=== PATIENT | male | born 1950 | race Caucasian/White ===

== ENCOUNTER 2022-04-29 08:56 | Observation (INO) ==
[2022-04-29 09:16] VITALS: BMI 43.5
--- NOTE | 2022-04-29 09:25 | DR.GENAD ---
HPI Time Seen Time Seen by Provider: 04/29/22 09:21 PCP Primary Care Physician: Morgan Complaint/Symptoms Chief Complaint Doctors Comments: BLOOD FROM RECTUM SINCE YESTERDAY. DARK STOOL STARTING LAST PM. HAD COLONOSCOPY 2 WEEKS AGO AND JUST RESTARTED PLAVIX. Chief Complaint:: Patient states he started having blood from rectum yesterday with an extremely loose black stool last PM. He states he had a colonoscopy on 04/14/22 and just restarted plavix COVID-19 Coronavirus risk:travel/contact w/high risk person: No Has patient experienced Coronavirus symptoms: No Source History Provided: Patient Mode of Arrival Mode of Arrival: Ambulatory Timing Onset of Chief Complaint: 04/28/22 PMH PMH Past Medical History: Yes Past Medical History: Arthritis, COPD, Coronary Artery Disease, Diabetes, Gout, Hypertension, [place] and Sleep Apnea Past Surgical History: Yes Surgical History: CABG/Valve Surgery Family History History of Family Medical Conditions: Yes Family Medical History: Diabetes Mellitus, Cancer, Coronary Artery Disease and Hypertension Social History Does patient currently use any type of tobacco product: No Have you used tobacco products in the last 12 months: No Type of Tobacco Use: None Does any household member use tobacco: No Alcohol Use: Occasionally Do you use any recreational Drugs:: No Lives With: Spouse Lives Where: Home Travel Risk Coronavirus risk:travel/contact w/high risk person: No Has patient experienced Coronavirus symptoms: No Infectious screening In the last 2 months have you had wt loss of >10#?: NO Have you had fever, night sweats or hemotysis?: No Have you traveled outside the country in the last 6 months?: No Isolation: Standard ROS Review of Systems Constitutional: Other (MELANOTIC STOOL) Eyes: No Symptoms Reported ENTM: No Symptoms Reported Respiratoy: No Symptoms Reported Cardiovascular: No Symptoms Reported Gastrointestinal/Abdominal: Other (DARK STOOL) Genitourinary: No Symptoms Reported Neurological: No Symptoms Reported Musculoskeletal: No Symptoms Reported Integumentary: No Symptoms Reported Hematologic/Lymphatic: No Symptoms Reported Endocrine: No Symptoms Reported Psychiatric: No Symptoms Reported PE Vital Signs Vitals: Temperature 97.6 F Pulse Rate 73 Respiratory Rate 20 Blood Pressure 148/66 O2 Sat by Pulse Oximetry 99 General Limitations: No Limitations General Appearance: In No Apparent Distress Head Head Exam: Normal Inspection, Atraumatic and Normocephalic Eyes Eye exam: Normal Appearance, PERRL and EOMI ENT ENT Exam: Normal Exam, Normal Oropharynx and Normal External Ear Exam External Ear Exam: Normal External Inspection TM/Canal Exam: Bilateral: Normal Nose Exam: Normal Nose Exam Mouth Exam: Normal Inspection Throat Exam: Normal Inspection Neck Neck Exam: Normal Inspection Chest Chest Inspection: Normal Inspection and Symmetric Chest Wall Rise Respiratory Respiratory Exam: Normal Lung Sounds Bilat Cardiovascular Cardiovascular Exam: Regular Rate and Normal Rhythm Abdominal Exam Abdominal Exam: Normal Inspection, Normal Bowel Sounds and Soft Extremities Extremities Exam: Normal Inspection and Full ROM Back Back Exam: Normal Inspection and Full ROM Neurologic Neurological Exam: Alert, Oriented X3 and CN II-XII Intact Psychiatric Psychiatric Exam: Normal Affect and Normal Mood Skin Skin Exam: Warm, Dry and Intact MDM Differential Diagnosis Differential Diagnosis: GASTRIC ULCER,UPPER GI BLEED COURSE Treatment Treatment: PATIENT REMAINED RELATIVELY STABLE DURING ER EVALUATION. HAD H/H THAT WAS 02/04.7. CALLED HIS GI DOCTOR,DR VILLEGAS AT 1020 AND HE STATED THAT THE PATIENT SHOULD BE MONITORED IN THE HOSPITAL FOR GI BLEED, STOP THE PLAVIX AND THE ASPIRIN AND START IV FLUIDS, GIVE PROTONIX 40MG IV AND DO NPO FOR 8 HOUSA AND THEN START CLEAR LIQUID DIET. [facility] HOSPITALIST STRUCTURAL WORKER TO ADMITH THE PATIENT AND HE WILL FOLLOW THE PATIENT. IF PATIENTS'S H/H DROPS DRAMATICALLY HE WILL COME IN AND SEE THE PATIENT AND TRANSFER. THE PATIENT WAS TOLD OF THE PLAN AND WAS AGREABLE TO THE PLAN. SPOKE TO DR YU AT 1040 AND SHE STATED THAT SHE WOULD ACCEPT THE PATIENT TO MONITOR H/H AND MEDICAL STABILITY. ROR Labs Reviewed Laboratory Results Reviewed?: Yes Result Diagrams: 04/29/22 09:40 04/29/22 09:40 Laboratory: WBC 6.3 X10^3/uL (3.6-10.0) 04/29/22 09:40 RBC 2.92 X10^6/uL (4.7-6.0) L 04/29/22 09:40 Hgb 10.0 g/dL (13.5-18.0) L 04/29/22 09:40 Hct 28.7 % (42.0-54.0) L 04/29/22 09:40 MCV 98.3 fL (80.0-100.0) 04/29/22 09:40 MCH 34.3 pg (27.0-34.0) H 04/29/22 09:40 MCHC 34.9 g/dL (33.0-35.0) 04/29/22 09:40 RDW 14.1 % (11.6-16.5) 04/29/22 09:40 Plt Count 194 X10^3/uL (150.0-450.0) 04/29/22 09:40 MPV 6.5 fL (7.4-11.0) L 04/29/22 09:40 Neut % (Auto) 81.5 % (42.0-75.0) H 04/29/22 09:40 Lymph % (Auto) 11.5 % (21.0-51.0) L 04/29/22 09:40 [place] % (Auto) 5.2 % (0.0-13.0) 04/29/22 09:40 Eos % (Auto) 1.3 % (0.9-2.9) 04/29/22 09:40 Baso % (Auto) 0.5 % (0.2-1.0) 04/29/22 09:40 Neut # (Auto) 5.1 x10^3/uL (2.2-4.8) H 04/29/22 09:40 Lymph # (Auto) 0.7 X10^3/uL (1.3-2.9) L 04/29/22 09:40 [place] # (Auto) 0.3 x10^3/uL (0.3-0.8) 04/29/22 09:40 Eos # (Auto) 0.1 x10^3/uL (0.0-0.2) 04/29/22 09:40 Baso # (Auto) 0.0 X10^3/uL (0.0-0.1) 04/29/22 09:40 Absolute Nucleated RBC 0.0 /100WBC 04/29/22 09:40 PT 15.0 SECONDS (11.8-14.3) 04/29/22 09:40 INR Target Range - 04/29/22 09:40 INR 1.22 (0.8-1.3) 04/29/22 09:40 APTT 23.6 SECONDS (22.9-36.5) 04/29/22 09:40 PTT Comment - 04/29/22 09:40 Sodium 137 mmol/L (136-145) 04/29/22 09:40 Corrected Sodium 138 mmol/L (136-145) 04/29/22 09:40 Potassium 4.8 mmol/L (3.5-5.1) 04/29/22 09:40 Chloride 105 mmol/L (98-107) 04/29/22 09:40 Carbon Dioxide 21.4 mmol/L (21-32) 04/29/22 09:40 BUN 49 mg/dL (7-18) H 04/29/22 09:40 Creatinine 1.72 mg/dL (0.70-1.30) H 04/29/22 09:40 Est GFR (MDRD) Af Amer 51 (>60) L 04/29/22 09:40 Est GFR (MDRD) Non-Af 42 (>60) L 04/29/22 09:40 Glucose 152 mg/dL (65-99) H 04/29/22 09:40 Calcium 8.7 mg/dL (8.5-10.1) 04/29/22 09:40 Corrected Calcium 9.3 mg/dL (8.5-10.1) 04/29/22 09:40 Total Bilirubin 0.30 mg/dL (0.2-1.0) 04/29/22 09:40 AST 12 Units/L (15-37) L 04/29/22 09:40 ALT 19 Units/L (12-78) 04/29/22 09:40 Alkaline Phosphatase 34 Units/L (46-116) L 04/29/22 09:40 Total Protein 5.8 g/dL (6.4-8.2) L 04/29/22 09:40 Albumin 3.3 g/dL (3.4-5.0) L 04/29/22 09:40 Globulin 2.5 g/dL (2.5-4.5) 04/29/22 09:40 Albumin/Globulin Ratio 1.3 Ratio (1.1-2.1) 04/29/22 09:40 Stl Occult Blood (IFOB) Negative (NEGATIVE) 04/29/22 10:22 Opioid Opioid Risk Tool Age (Franko box if 16-45): No History of Preadolescent Sexual Abuse: No Total: 0 Total Score Risk Category: Low Risk Copyright: Vasques LR predicting aberrant behaviors Discharge Plan Diagnosis Discharge Problem: GI (gastrointestinal bleed) Discharge Plan Patient Disposition: 09 ADMITTED INPATIENT Condition: Stable Prescriptions: No Action fluticasone propion-salmeterol [Wixela Inhub] 250-50 mcg/dose blister with device 1 puff INHALATION BID ropinirole 1 mg tablet 1 tab PO QPM prazosin 5 mg capsule 1 cap PO QPM allopurinol 300 mg tablet 1 tab PO QDAY lorazepam 1 mg tablet 1 tab PO BID finasteride 5 mg tablet 1 tab PO QDAY rosuvastatin 20 mg tablet 1 tab PO QDAY acetaminophen 325 mg Tablet 325 mg PO Q4HR PRN diltiazem HCl 240 mg capsule,extended release 24hr 1 cap PO QDAY ethacrynic acid 25 mg Tablet 25 mg PO QDAY clopidogrel 75 mg Tablet 75 mg PO QDAY aspirin 81 mg Tablet,Delayed Release (Dr/Ec) 81 mg PO QDAY isosorbide dinitrate 20 mg Tablet 20 mg PO BID Rx Instructions: allow nitrate-free interval of 12-14 hrs per 24-hr period docusate sodium 100 mg Capsule 100 mg PO QDAY losartan 100 mg Tablet 100 mg PO QDAY ezetimibe 10 mg Tablet Spiriva Respimat 2.5 mcg/actuation Mist See Rx Instructions .ROUTE .COMPLEX Rx Instructions: daily Health Concerns: Post Hospitalization: new medications and changes needed to prevent readmission or further decline. Pt educated and given instructions on all concerns. Plan of Treatment: Continue with present treatment and follow up plan. Pt is to keep follow up appointment as instructed and take medications as ordered. Orders to Discharge Patient Discharge Orders: Transfer (Routine); Ordered 04/29/22 Ordered By: Srinivas Franco Follow ups/Referrals Follow ups/Referrals: FRANCISCO DELUCA [Primary Care Provider] - 3 days
[2022-04-29 09:48] LABS: BASOPHILS % (AUTO) 0.5 % (0.2-1.0); EOSINOPHILS # (AUTO) 0.1 x10^3/uL (0.0-0.2); EOSINOPHILS % (AUTO) 1.3 % (0.9-2.9); HEMATOCRIT 28.7 % (42.0-54.0); LYMPHOCYTES # (AUTO) 0.7 X10^3/uL (1.3-2.9); LYMPHOCYTES % (AUTO) 11.5 % (21.0-51.0); MEAN CORPUSCULAR HEMOGLOBIN 34.3 pg (27.0-34.0); MEAN CORPUSCULAR HGB CONC 34.9 g/dL (33.0-35.0); MEAN CORPUSCULAR VOLUME 98.3 fL (80.0-100.0); MEAN PLATELET VOLUME 6.5 fL (7.4-11.0); MONOCYTES # (AUTO) 0.3 x10^3/uL (0.3-0.8); MONOCYTES % (AUTO) 5.2 % (0.0-13.0); NEUTROPHILS # (AUTO) 5.1 x10^3/uL (2.2-4.8); NEUTROPHILS % (AUTO) 81.5 % (42.0-75.0); RED BLOOD COUNT 2.92 X10^6/uL (4.7-6.0); RED CELL DISTRIBUTION WIDTH 14.1 % (11.6-16.5); WHITE BLOOD COUNT 6.3 X10^3/uL (3.6-10.0)
[2022-04-29 09:56] LABS: INR 1.22 (0.8-1.3)
[2022-04-29 10:01] LABS: ALBUMIN 3.3 g/dL (3.4-5.0); CALCIUM 8.7 mg/dL (8.5-10.1); CARBON DIOXIDE 21.4 mmol/L (21-32); COR CA(FOR HYPOALB) 9.3 mg/dL (8.5-10.1); CREATININE 1.72 mg/dL (0.70-1.30); TOTAL PROTEIN 5.8 g/dL (6.4-8.2)
[2022-04-29] MEDS ORDERED: NS 1,000 ML IV 1,000 ML ONE (11:18)
[2022-04-29] MEDS: NS 1,000 ML IV 1,000 ML IV SCH ×2 (11:27→20:08)
[2022-04-29] MEDS ORDERED: PATIENT'S HOME MEDICATION (Tiotropium Bromide [Spiriva Respimat] 2.5 mcg/actuation Mist) SCH (12:38)
[2022-04-29] MEDS: CARDIZEM CD 240 MG 24-HR PO SCH (13:31)
[2022-04-29] MEDS: ISOSORBIDE DINITRATE PO SCH (21:22)
[2022-04-29] MEDS: ATIVAN TAB 1 MG PO SCH (21:22)
[2022-04-29] MEDS: COREG TAB 25 MG PO SCH (21:22)
[2022-04-29] MEDS: RANEXA PO SCH (21:23)
[2022-04-29 22:05] LABS: BASOPHILS % (AUTO) 0.4 % (0.2-1.0); EOSINOPHILS # (AUTO) 0.1 x10^3/uL (0.0-0.2); EOSINOPHILS % (AUTO) 2.1 % (0.9-2.9); HEMATOCRIT 27.1 % (42.0-54.0); HEMOGLOBIN 9.5 g/dL (13.5-18.0); LYMPHOCYTES # (AUTO) 1.1 X10^3/uL (1.3-2.9); LYMPHOCYTES % (AUTO) 19.1 % (21.0-51.0); MEAN CORPUSCULAR HEMOGLOBIN 34.3 pg (27.0-34.0); MEAN CORPUSCULAR HGB CONC 35.1 g/dL (33.0-35.0); MEAN CORPUSCULAR VOLUME 97.8 fL (80.0-100.0); MEAN PLATELET VOLUME 6.5 fL (7.4-11.0); MONOCYTES # (AUTO) 0.3 x10^3/uL (0.3-0.8); MONOCYTES % (AUTO) 5.6 % (0.0-13.0); NEUTROPHILS # (AUTO) 4.4 x10^3/uL (2.2-4.8); NEUTROPHILS % (AUTO) 72.8 % (42.0-75.0); RED BLOOD COUNT 2.77 X10^6/uL (4.7-6.0); RED CELL DISTRIBUTION WIDTH 14.1 % (11.6-16.5)
[2022-04-30] MEDS: NS 1,000 ML IV 1,000 ML IV SCH ×4 (03:52→21:38)
[2022-04-30 05:14] LABS: BASOPHILS % (AUTO) 0.4 % (0.2-1.0); EOSINOPHILS # (AUTO) 0.1 x10^3/uL (0.0-0.2); EOSINOPHILS % (AUTO) 2.3 % (0.9-2.9); HEMATOCRIT 27.5 % (42.0-54.0); HEMOGLOBIN 9.6 g/dL (13.5-18.0); MEAN CORPUSCULAR HGB CONC 34.7 g/dL (33.0-35.0); MEAN PLATELET VOLUME 6.8 fL (7.4-11.0); MONOCYTES # (AUTO) 0.3 x10^3/uL (0.3-0.8); MONOCYTES % (AUTO) 5.5 % (0.0-13.0); NEUTROPHILS # (AUTO) 4.3 x10^3/uL (2.2-4.8); NEUTROPHILS % (AUTO) 74.8 % (42.0-75.0); RED BLOOD COUNT 2.81 X10^6/uL (4.7-6.0); WHITE BLOOD COUNT 5.8 X10^3/uL (3.6-10.0)
[2022-04-30 05:25] LABS: ALANINE AMINOTRANSFERASE 19 Units/L (12-78); ALBUMIN 3.1 g/dL (3.4-5.0); ALKALINE PHOSPHATASE 33 Units/L (46-116); ASPARTATE AMINO TRANSFERASE 12 Units/L (15-37); BLOOD UREA NITROGEN 27 mg/dL (7-18); CALCIUM 8.3 mg/dL (8.5-10.1); CARBON DIOXIDE 22.8 mmol/L (21-32); CHLORIDE 107 mmol/L (98-107); COR NA(FOR HYPERGLY) 137 mmol/L (136-145); CREATININE 1.16 mg/dL (0.70-1.30); SODIUM 136 mmol/L (136-145); TOTAL PROTEIN 5.5 g/dL (6.4-8.2); eGFR NON BLACK RACES > 60 (>60)
[2022-04-30] MEDS: CARDIZEM CD 240 MG 24-HR PO SCH (08:41)
[2022-04-30] MEDS: ATIVAN TAB 1 MG PO SCH (08:41)
[2022-04-30] MEDS: ISOSORBIDE DINITRATE PO SCH ×2 (08:42→21:35)
[2022-04-30] MEDS: CELEXA PO SCH (08:42)
[2022-04-30] MEDS: RANEXA PO SCH ×2 (08:42→21:35)
[2022-04-30] MEDS: COREG TAB 25 MG PO SCH ×2 (08:42→21:36)
[2022-04-30] MEDS: PROTONIX INJ 40 MG VIAL IVP SCH (08:43)
--- NOTE | 2022-04-30 11:01 | DR.H&P ---
H&P History & Physical for Day of: H&P Date: 04/30/22 Chief Complaint Chief Complaint: bloody stools Allergies Allergies Allergy/AdvReac Type Severity Reaction Status Date / Time amlodipine [From Norvasc] Allergy Verified 02/20/22 13:49 codeine Allergy Verified 02/20/22 13:49 gabapentin Allergy Verified 02/20/22 13:49 gemfibrozil [From Lopid] Allergy Verified 04/29/22 09:39 hydrochlorothiazide Allergy Verified 04/29/22 09:40 lisinopril Allergy Verified 02/20/22 13:49 morphine Allergy Verified 02/20/22 13:49 [id number]-[id number] Reductase Allergy Verified 04/14/22 07:15 Inhibitor hydralazine AdvReac Verified 04/29/22 09:39 simvastatin [From Zocor] AdvReac Verified 04/29/22 09:41 Sulfa (Sulfonamide AdvReac Verified 02/20/22 13:49 Antibiotics) History of Present Illness History of Present Illness: Mr Seay is a 71y/o male with a PMH of DM, HTN, CAD, CABG, , single kidney, SYED and COPD presented with dark tarry stools. He had a colonoscopy done on 04/14/22 and was found to have some polyps. He restarted his asa and plavix 5 days after and started noticing bright red blood and dark stools on 04/28/22. He came to the ED for further evaluation. In the ER, hgb was 10.0, he was medically stable. His Cr was elevated at 1.72. Dr Hayes was contacted and advised patient to be admitted for monitoring of his Hgb. This morning, patient had another BM with dark stools but not bright blood like before. He feels better. His hgb is stable at 9.6. His renal function is normal. Labs/imaging reviewed Plan: Monitor H&H, decrease IV to 75 cc/hr, continue IV Protonix. Advance diet to full liquids. Resume home medications except asa and plavix. Monitor for bleeding. Monitor AM labs/imaging. Past Medical History Past Medical History: Arthritis, COPD, Coronary Artery Disease, Diabetes, Gout, Hypertension, NC and Sleep Apnea Past Surgical History Surgical History: CABG/Valve Surgery, Cholecystectomy, Tonsillectomy and Lithotripsy Family History Family Medical History: Diabetes Mellitus, Cancer, Coronary Artery Disease and Hypertension Social History Does patient currently use any type of tobacco product: No Have you used tobacco products in the last 12 months: No Type of Tobacco Use: None Does any household member use tobacco: No Alcohol Use: Occasionally Drug Use: None Medications Home Medications: amlodipine [From Norvasc] Allergy (Verified 02/20/22 13:49) codeine Allergy (Verified 02/20/22 13:49) gabapentin Allergy (Verified 02/20/22 13:49) gemfibrozil [From Lopid] Allergy (Verified 04/29/22 09:39) hydrochlorothiazide Allergy (Verified 04/29/22 09:40) lisinopril Allergy (Verified 02/20/22 13:49) morphine Allergy (Verified 02/20/22 13:49) [id number] Reductase Inhibitor Allergy (Verified 04/14/22 07:15) hydralazine Adverse Reaction (Verified 04/29/22 09:39) simvastatin [From Zocor] Adverse Reaction (Verified 04/29/22 09:41) Sulfa (Sulfonamide Antibiotics) Adverse Reaction (Verified 02/20/22 13:49) CONTINUE taking the following medications acetaminophen 325 mg tablet 325 mg PO Q4HR PRN 04/29/22 [History] allopurinol 300 mg tablet 300 mg PO QDAY 04/29/22 [History] aspirin 81 mg tablet,delayed release 81 mg PO QDAY 04/29/22 [History] carvedilol 25 mg tablet 50 mg PO BID 04/29/22 [History] cholecalciferol (vitamin D3) 50 mcg (2,000 unit) tablet 50 mcg PO DAILY 04/29/22 [History] citalopram 20 mg tablet 20 mg PO DAILY 04/29/22 [History] clonazepam 0.5 mg tablet 0.5 mg PO HS 04/29/22 [History] clopidogrel 75 mg tablet 75 mg PO QDAY 04/29/22 [History] diltiazem HCl 240 mg capsule,extended release 24 hr 240 mg PO QDAY 04/29/22 [History] docosahexaenoic acid (dha)-epa capsule 2 cap PO DAILY 04/29/22 [History] docusate sodium 100 mg capsule 100 mg PO QDAY 04/29/22 [History] ethacrynic acid 25 mg tablet 25 mg PO QDAY 04/29/22 [History] ezetimibe 10 mg tablet 10 mg PO DAILY 04/29/22 [History] finasteride 5 mg tablet 5 mg PO QDAY 04/29/22 [History] fluticasone 250 mcg-salmeterol 50 mcg/dose blistr powdr for inhalation (Wixela Inhub) 1 puff inhalation BID 04/29/22 [History] isosorbide dinitrate 20 mg tablet 20 mg PO BID 04/29/22 [History] lorazepam 1 mg tablet 1 tab PO BID 04/29/22 [History] losartan 100 mg tablet 100 mg PO QDAY 04/29/22 [History] multivitamin 1 tab PO DAILY 04/29/22 [History] prazosin 5 mg capsule 5 mg PO QPM 04/29/22 [History] ranolazine 1,000 mg tablet,extended release,12 hr 1,000 mg PO BID 04/29/22 [His tory] ropinirole 1 mg tablet 1 mg PO QPM 04/29/22 [History] rosuvastatin 20 mg tablet 1 tab PO QDAY 04/29/22 [History] tiotropium bromide 2.5 mcg/actuation mist for inhalation (Spiriva Respimat) See Rx Instructions .Route .COMPLEX 04/29/22 [History] Labs Result Diagrams: 04/30/22 04:50 04/30/22 04:50 Labs: Laboratory WBC 5.8 X10^3/uL (3.6-10.0) 04/30/22 04:50 RBC 2.81 X10^6/uL (4.7-6.0) L 04/30/22 04:50 Hgb 9.6 g/dL (13.5-18.0) L 04/30/22 04:50 Hct 27.5 % (42.0-54.0) L 04/30/22 04:50 MCV 98.0 fL (80.0-100.0) 04/30/22 04:50 MCH 34.0 pg (27.0-34.0) 04/30/22 04:50 MCHC 34.7 g/dL (33.0-35.0) 04/30/22 04:50 RDW 14.0 % (11.6-16.5) 04/30/22 04:50 Plt Count 187 X10^3/uL (150.0-450.0) 04/30/22 04:50 MPV 6.8 fL (7.4-11.0) L 04/30/22 04:50 Neut % (Auto) 74.8 % (42.0-75.0) 04/30/22 04:50 Lymph % (Auto) 17.0 % (21.0-51.0) L 04/30/22 04:50 [place] % (Auto) 5.5 % (0.0-13.0) 04/30/22 04:50 Eos % (Auto) 2.3 % (0.9-2.9) 04/30/22 04:50 Baso % (Auto) 0.4 % (0.2-1.0) 04/30/22 04:50 Neut # (Auto) 4.3 x10^3/uL (2.2-4.8) 04/30/22 04:50 Lymph # (Auto) 1.0 X10^3/uL (1.3-2.9) L 04/30/22 04:50 [place] # (Auto) 0.3 x10^3/uL (0.3-0.8) 04/30/22 04:50 Eos # (Auto) 0.1 x10^3/uL (0.0-0.2) 04/30/22 04:50 Baso # (Auto) 0.0 X10^3/uL (0.0-0.1) 04/30/22 04:50 Absolute Nucleated RBC 0.0 /100WBC 04/30/22 04:50 PT 15.0 SECONDS (11.8-14.3) 04/29/22 09:40 INR Target Range - 04/29/22 09:40 INR 1.22 (0.8-1.3) 04/29/22 09:40 APTT 23.6 SECONDS (22.9-36.5) 04/29/22 09:40 PTT Comment - 04/29/22 09:40 Sodium 136 mmol/L (136-145) 04/30/22 04:50 Corrected Sodium 137 mmol/L (136-145) 04/30/22 04:50 Potassium 4.9 mmol/L (3.5-5.1) 04/30/22 04:50 Chloride 107 mmol/L (98-107) 04/30/22 04:50 Carbon Dioxide 22.8 mmol/L (21-32) 04/30/22 04:50 BUN 27 mg/dL (7-18) H 04/30/22 04:50 Creatinine 1.16 mg/dL (0.70-1.30) 04/30/22 04:50 Est GFR (MDRD) Af Amer > 60 (>60) 04/30/22 04:50 Est GFR (MDRD) Non-Af > 60 (>60) 04/30/22 04:50 Glucose 133 mg/dL (65-99) H 04/30/22 04:50 POC Glucose (mg/dL) 134 mg/dL (65-99) H 04/30/22 05:49 Calcium 8.3 mg/dL (8.5-10.1) L 04/30/22 04:50 Corrected Calcium 9.0 mg/dL (8.5-10.1) 04/30/22 04:50 Total Bilirubin 0.50 mg/dL (0.2-1.0) 04/30/22 04:50 AST 12 Units/L (15-37) L 04/30/22 04:50 ALT 19 Units/L (12-78) 04/30/22 04:50 Alkaline Phosphatase 33 Units/L (46-116) L 04/30/22 04:50 Total Protein 5.5 g/dL (6.4-8.2) L 04/30/22 04:50 Albumin 3.1 g/dL (3.4-5.0) L 04/30/22 04:50 Globulin 2.4 g/dL (2.5-4.5) L 04/30/22 04:50 Albumin/Globulin Ratio 1.3 Ratio (1.1-2.1) 04/30/22 04:50 Stl Occult Blood (IFOB) Negative (NEGATIVE) 04/29/22 10:22 Review of Systems Constitutional: Weakness Eyes: No Symptoms Reported ENT: No Symptoms Reported Respiratory: No Symptoms Reported Cardiovascular: No Symptoms Reported Gastrointestinal: Melena and Hematochezia Genitourinary: No Symptoms Reported Musculoskeletal: No Symptoms Reported Skin: No Symptoms Reported Neurological: No Symptoms Reported Physical Exam Vital Signs: Temperature 98.1 F Pulse Rate [Bilateral Radial] 65 Pulse Rate 73 Respiratory Rate 20 Blood Pressure [Left Arm] 144/65 Blood Pressure 151/70 O2 Sat by Pulse Oximetry 98 Oriented: Normal Eyes: Normal Nose: Normal Throat: Normal Respiratory: Clear Throughout Cardiovascular: Normal Auscultation: Bowel Sounds: Normal Palpation: Normal Tenderness: Normal Skin: Normal Musculoskeletal: Normal Psychiatric: Normal Mood Description: Calm Affect: Normal Speech Pattern: Clear and Appropriate Assessment/Plan (1) GI (gastrointestinal bleed): Status: Acute (2) Anemia: Status: Acute (3) CAD (coronary artery disease): Status: Acute (4) HTN (hypertension): Status: Acute (5) HLD (hyperlipidemia): Status: Acute (6) Hx of CABG: Status: Acute (7) BIANCA (acute kidney injury): Status: Acute Review H&P Reviewed: Yes Patient was examined?: Yes
[2022-04-30 17:27] LABS: HEMATOCRIT 28.3 % (42.0-54.0); HEMOGLOBIN 10.1 g/dL (13.5-18.0)
[2022-04-30] MEDS ORDERED: REQUIP PO SCH (21:00)
[2022-04-30] MEDS ORDERED: KLONOPIN TAB 0.5 MG PO SCH (21:00)
[2022-05-01 06:26] LABS: BASOPHILS % (AUTO) 0.4 % (0.2-1.0); EOSINOPHILS # (AUTO) 0.1 x10^3/uL (0.0-0.2); EOSINOPHILS % (AUTO) 2.2 % (0.9-2.9); HEMATOCRIT 25.6 % (42.0-54.0); HEMOGLOBIN 9.1 g/dL (13.5-18.0); LYMPHOCYTES # (AUTO) 0.8 X10^3/uL (1.3-2.9); LYMPHOCYTES % (AUTO) 18.1 % (21.0-51.0); MEAN CORPUSCULAR HEMOGLOBIN 34.9 pg (27.0-34.0); MEAN CORPUSCULAR HGB CONC 35.5 g/dL (33.0-35.0); MEAN CORPUSCULAR VOLUME 98.1 fL (80.0-100.0); MEAN PLATELET VOLUME 6.6 fL (7.4-11.0); MONOCYTES # (AUTO) 0.3 x10^3/uL (0.3-0.8); NEUTROPHILS # (AUTO) 3.1 x10^3/uL (2.2-4.8); NEUTROPHILS % (AUTO) 73.3 % (42.0-75.0); RED BLOOD COUNT 2.61 X10^6/uL (4.7-6.0); RED CELL DISTRIBUTION WIDTH 14.3 % (11.6-16.5); WHITE BLOOD COUNT 4.3 X10^3/uL (3.6-10.0)
[2022-05-01 06:49] LABS: ALANINE AMINOTRANSFERASE 19 Units/L (12-78); ALKALINE PHOSPHATASE 34 Units/L (46-116); ASPARTATE AMINO TRANSFERASE 12 Units/L (15-37); BLOOD UREA NITROGEN 15 mg/dL (7-18); CHLORIDE 107 mmol/L (98-107); COR CA(FOR HYPOALB) 8.8 mg/dL (8.5-10.1); COR NA(FOR HYPERGLY) 137 mmol/L (136-145); CREATININE 1.08 mg/dL (0.70-1.30); SODIUM 136 mmol/L (136-145); TOTAL PROTEIN 5.2 g/dL (6.4-8.2); eGFR NON BLACK RACES > 60 (>60)
[2022-05-01] MEDS ORDERED: ZYLOPRIM PO SCH (09:00)
[2022-05-01] MEDS ORDERED: PROSCAR PO SCH (09:00)
[2022-05-01] MEDS ORDERED: COZAAR PO SCH (09:00)
--- NOTE | 2022-05-01 10:17 | W.DIS.FURT ---
Summary of Discharge Admission Diagnosis Patient Problems (Updated 04/30/22 @ 11:00 by Fabiola Boyer) GI (gastrointestinal bleed) (Acute) K92.2 Vital Signs: Vital Signs (72 hours) 04/29/22 08:57 04/29/22 09:12 04/29/22 09:17 Temperature 97.6 F Pulse Rate 77 71 Pulse Rate [Bilateral Radial] Respiratory Rate 20 Blood Pressure 143/65 143/65 Blood Pressure [Left Arm] O2 Sat by Pulse Oximetry 99 98 Oxygen Delivery Method Room Air 04/29/22 09:30 04/29/22 09:31 04/29/22 09:31 Temperature Pulse Rate 71 69 Pulse Rate [Bilateral Radial] Respiratory Rate Blood Pressure 127/66 Blood Pressure [Left Arm] O2 Sat by Pulse Oximetry 97 98 Oxygen Delivery Method 04/29/22 09:45 04/29/22 10:00 04/29/22 10:00 Temperature Pulse Rate 71 70 Pulse Rate [Bilateral Radial] Respiratory Rate Blood Pressure 134/63 Blood Pressure [Left Arm] O2 Sat by Pulse Oximetry 98 97 Oxygen Delivery Method 04/29/22 10:24 04/29/22 10:30 04/29/22 10:32 Temperature Pulse Rate 80 73 Pulse Rate [Bilateral Radial] Respiratory Rate Blood Pressure 148/66 Blood Pressure [Left Arm] O2 Sat by Pulse Oximetry 100 99 Oxygen Delivery Method 04/29/22 10:32 04/29/22 10:45 04/29/22 11:00 Temperature Pulse Rate 73 72 73 Pulse Rate [Bilateral Radial] Respiratory Rate Blood Pressure Blood Pressure [Left Arm] O2 Sat by Pulse Oximetry 99 98 99 Oxygen Delivery Method 04/29/22 12:32 04/29/22 11:15 04/29/22 11:30 Temperature Pulse Rate 71 Pulse Rate [Bilateral Radial] Respiratory Rate Blood Pressure 151/70 Blood Pressure [Left Arm] 130/85 O2 Sat by Pulse Oximetry 97 Oxygen Delivery Method 04/29/22 11:30 04/29/22 11:45 04/29/22 12:01 Temperature Pulse Rate 72 73 70 Pulse Rate [Bilateral Radial] Respiratory Rate Blood Pressure Blood Pressure [Left Arm] O2 Sat by Pulse Oximetry 98 98 98 Oxygen Delivery Method 04/29/22 12:15 04/29/22 12:11 04/29/22 13:19 Temperature 97.6 F Pulse Rate 73 Pulse Rate [Bilateral Radial] 81 Respiratory Rate 22 Blood Pressure Blood Pressure [Left Arm] 171/78 O2 Sat by Pulse Oximetry 98 99 Oxygen Delivery Method Room Air Room Air 04/29/22 16:00 04/29/22 19:00 04/29/22 20:00 Temperature 97.7 F 98.4 F Pulse Rate Pulse Rate [Bilateral Radial] 79 63 Respiratory Rate 22 20 Blood Pressure Blood Pressure [Left Arm] 164/71 174/87 O2 Sat by Pulse Oximetry 99 97 Oxygen Delivery Method Room Air Room Air Room Air 04/30/22 00:00 04/30/22 04:00 04/30/22 08:00 Temperature 98.1 F 98.0 F 98.1 F Pulse Rate Pulse Rate [Bilateral Radial] 72 76 65 Respiratory Rate 20 20 20 Blood Pressure Blood Pressure [Left Arm] 119/56 138/71 144/65 O2 Sat by Pulse Oximetry 97 99 98 Oxygen Delivery Method Room Air Room Air Room Air 04/30/22 07:00 04/30/22 12:00 04/30/22 16:00 Temperature 97.9 F 98.4 F Pulse Rate Pulse Rate [Bilateral Radial] 59 L 54 L Respiratory Rate 20 20 Blood Pressure Blood Pressure [Left Arm] 121/59 139/65 O2 Sat by Pulse Oximetry 97 97 Oxygen Delivery Method Room Air Room Air Room Air 04/30/22 19:00 04/30/22 20:00 05/01/22 00:00 Temperature 98.3 F 98.0 F Pulse Rate Pulse Rate [Bilateral Radial] 71 62 Respiratory Rate 20 20 Blood Pressure Blood Pressure [Left Arm] 168/64 135/60 O2 Sat by Pulse Oximetry 97 96 Oxygen Delivery Method Room Air Room Air CPAP 05/01/22 04:00 05/01/22 07:00 05/01/22 08:00 Temperature 98.2 F 98.4 F Pulse Rate Pulse Rate [Bilateral Radial] 74 69 Respiratory Rate 20 20 Blood Pressure Blood Pressure [Left Arm] 147/69 152/76 O2 Sat by Pulse Oximetry 97 95 Oxygen Delivery Method CPAP Room Air Room Air Labs: Laboratory Last Values WBC 4.3 X10^3/uL (3.6-10.0) 05/01/22 05:50 RBC 2.61 X10^6/uL (4.7-6.0) L 05/01/22 05:50 Hgb 9.1 g/dL (13.5-18.0) L 05/01/22 05:50 Hct 25.6 % (42.0-54.0) L 05/01/22 05:50 MCV 98.1 fL (80.0-100.0) 05/01/22 05:50 MCH 34.9 pg (27.0-34.0) H 05/01/22 05:50 MCHC 35.5 g/dL (33.0-35.0) H 05/01/22 05:50 RDW 14.3 % (11.6-16.5) 05/01/22 05:50 Plt Count 184 X10^3/uL (150.0-450.0) 05/01/22 05:50 MPV 6.6 fL (7.4-11.0) L 05/01/22 05:50 Neut % (Auto) 73.3 % (42.0-75.0) 05/01/22 05:50 Lymph % (Auto) 18.1 % (21.0-51.0) L 05/01/22 05:50 Kidder % (Auto) 6.0 % (0.0-13.0) 05/01/22 05:50 Eos % (Auto) 2.2 % (0.9-2.9) 05/01/22 05:50 Baso % (Auto) 0.4 % (0.2-1.0) 05/01/22 05:50 Neut # (Auto) 3.1 x10^3/uL (2.2-4.8) 05/01/22 05:50 Lymph # (Auto) 0.8 X10^3/uL (1.3-2.9) L 05/01/22 05:50 Kidder # (Auto) 0.3 x10^3/uL (0.3-0.8) 05/01/22 05:50 Eos # (Auto) 0.1 x10^3/uL (0.0-0.2) 05/01/22 05:50 Baso # (Auto) 0.0 X10^3/uL (0.0-0.1) 05/01/22 05:50 Absolute Nucleated RBC 0.1 /100WBC 05/01/22 05:50 PT 15.0 SECONDS (11.8-14.3) 04/29/22 09:40 INR Target Range - 04/29/22 09:40 INR 1.22 (0.8-1.3) 04/29/22 09:40 APTT 23.6 SECONDS (22.9-36.5) 04/29/22 09:40 PTT Comment - 04/29/22 09:40 Sodium 136 mmol/L (136-145) 05/01/22 05:50 Corrected Sodium 137 mmol/L (136-145) 05/01/22 05:50 Potassium 4.2 mmol/L (3.5-5.1) 05/01/22 05:50 Chloride 107 mmol/L (98-107) 05/01/22 05:50 Carbon Dioxide 22.0 mmol/L (21-32) 05/01/22 05:50 BUN 15 mg/dL (7-18) 05/01/22 05:50 Creatinine 1.08 mg/dL (0.70-1.30) 05/01/22 05:50 Est GFR (MDRD) Af Amer > 60 (>60) 05/01/22 05:50 Est GFR (MDRD) Non-Af > 60 (>60) 05/01/22 05:50 Glucose 145 mg/dL (65-99) H 05/01/22 05:50 POC Glucose (mg/dL) 150 mg/dL (65-99) H 05/01/22 06:19 Calcium 8.0 mg/dL (8.5-10.1) L 05/01/22 05:50 Corrected Calcium 8.8 mg/dL (8.5-10.1) 05/01/22 05:50 Total Bilirubin 0.50 mg/dL (0.2-1.0) 05/01/22 05:50 AST 12 Units/L (15-37) L 05/01/22 05:50 ALT 19 Units/L (12-78) 05/01/22 05:50 Alkaline Phosphatase 34 Units/L (46-116) L 05/01/22 05:50 Total Protein 5.2 g/dL (6.4-8.2) L 05/01/22 05:50 Albumin 3.0 g/dL (3.4-5.0) L 05/01/22 05:50 Globulin 2.2 g/dL (2.5-4.5) L 05/01/22 05:50 Albumin/Globulin Ratio 1.4 Ratio (1.1-2.1) 05/01/22 05:50 Stl Occult Blood (IFOB) Negative (NEGATIVE) 04/29/22 10:22 Reason For Visit: GI BLEED Discharge Diagnosis All Active Problems (Updated 04/30/22 @ 11:00 by Fabiola Boyer) Anemia (Acute) BIANCA (acute kidney injury) (Acute) Hx of CABG (Acute) HLD (hyperlipidemia) (Acute) HTN (hypertension) (Acute) CAD (coronary artery disease) (Acute) GI (gastrointestinal bleed) (Acute) GI (gastrointestinal bleed) (Acute) Acute exacerbation of chronic obstructive pulmonary disease (Acute) Plan of Treatment: Continue with present treatment and follow up plan. Pt is to keep follow up appointment as instructed and take medications as ordered. Discharge Medications Discharge Medications: amlodipine [From Norvasc] Allergy (Verified 02/20/22 13:49) codeine Allergy (Verified 02/20/22 13:49) gabapentin Allergy (Verified 02/20/22 13:49) gemfibrozil [From Lopid] Allergy (Verified 04/29/22 09:39) hydrochlorothiazide Allergy (Verified 04/29/22 09:40) lisinopril Allergy (Verified 02/20/22 13:49) morphine Allergy (Verified 02/20/22 13:49) [id number] Reductase Inhibitor Allergy (Verified 04/14/22 07:15) hydralazine Adverse Reaction (Verified 04/29/22 09:39) simvastatin [From Zocor] Adverse Reaction (Verified 04/29/22 09:41) Sulfa (Sulfonamide Antibiotics) Adverse Reaction (Verified 02/20/22 13:49) CONTINUE taking the following medications acetaminophen 325 mg tablet 325 mg PO Q4HR PRN 04/29/22 [History] allopurinol 300 mg tablet 300 mg PO QDAY 04/29/22 [History] aspirin 81 mg tablet,delayed release 81 mg PO QDAY 04/29/22 [History] carvedilol 25 mg tablet 50 mg PO BID 04/29/22 [History] cholecalciferol (vitamin D3) 50 mcg (2,000 unit) tablet 50 mcg PO DAILY 04/29/22 [History] citalopram 20 mg tablet 20 mg PO DAILY 04/29/22 [History] clonazepam 0.5 mg tablet 0.5 mg PO HS 04/29/22 [History] clopidogrel 75 mg tablet 75 mg PO QDAY 04/29/22 [History] diltiazem HCl 240 mg capsule,extended release 24 hr 240 mg PO QDAY 04/29/22 [History] docosahexaenoic acid (dha)-epa capsule 2 cap PO DAILY 04/29/22 [History] docusate sodium 100 mg capsule 100 mg PO QDAY 04/29/22 [History] ethacrynic acid 25 mg tablet 25 mg PO QDAY 04/29/22 [History] ezetimibe 10 mg tablet 10 mg PO DAILY 04/29/22 [History] finasteride 5 mg tablet 5 mg PO QDAY 04/29/22 [History] fluticasone 250 mcg-salmeterol 50 mcg/dose blistr powdr for inhalation (Wixela Inhub) 1 puff inhalation BID 04/29/22 [History] isosorbide dinitrate 20 mg tablet 20 mg PO BID 04/29/22 [History] lorazepam 1 mg tablet 1 tab PO BID 04/29/22 [History] losartan 100 mg tablet 100 mg PO QDAY 04/29/22 [History] multivitamin 1 tab PO DAILY 04/29/22 [History] prazosin 5 mg capsule 5 mg PO QPM 04/29/22 [History] ranolazine 1,000 mg tablet,extended release,12 hr 1,000 mg PO BID 04/29/22 [History] ropinirole 1 mg tablet 1 mg PO QPM 04/29/22 [History] rosuvastatin 20 mg tablet 1 tab PO QDAY 04/29/22 [History] tiotropium bromide 2.5 mcg/actuation mist for inhalation (Spiriva Respimat) See Rx Instructions .Route .COMPLEX 04/29/22 [History] Discharge Plan Discharge Plan Patient Disposition: HOME, SELF-CARE Condition: Stable Health Concerns: Post Hospitalization: new medications and changes needed to prevent readmission or further decline. Pt educated and given instructions on all concerns. Plan of Treatment: Continue with present treatment and follow up plan. Pt is to keep follow up appointment as instructed and take medications as ordered. Prescription drug monitoring program results: PDMP reviewed and no concerns identified Prescriptions: Continued ropinirole 1 mg tablet 1 mg PO QPM prazosin 5 mg capsule 5 mg PO QPM allopurinol 300 mg tablet 300 mg PO QDAY finasteride 5 mg tablet 5 mg PO QDAY rosuvastatin 20 mg tablet 1 tab PO QDAY acetaminophen 325 mg Tablet 325 mg PO Q4HR PRN diltiazem HCl 240 mg capsule,extended release 24hr 240 mg PO QDAY ethacrynic acid 25 mg Tablet 25 mg PO QDAY isosorbide dinitrate 20 mg Tablet 20 mg PO BID Rx Instructions: allow nitrate-free interval of 12-14 hrs per 24-hr period docusate sodium 100 mg Capsule 100 mg PO QDAY losartan 100 mg Tablet 100 mg PO QDAY ezetimibe 10 mg Tablet 10 mg PO DAILY Spiriva Respimat 2.5 mcg/actuation Mist See Rx Instructions .ROUTE .COMPLEX Rx Instructions: daily multivitamin Tablet 1 tab PO DAILY fluticasone propion-salmeterol [Wixela Inhub] 250-50 mcg/dose blister with device 1 puff INHALATION BID carvedilol 25 mg Tablet 50 mg PO BID clonazepam 0.5 mg Tablet 0.5 mg PO HS citalopram 20 mg Tablet 20 mg PO DAILY Fish Oil (with DHA-EPA) Capsule 2 cap PO DAILY ranolazine 1,000 mg Tablet Extended Release 12 Hr 1,000 mg PO BID cholecalciferol (vitamin D3) 50 mcg (2,000 unit) Tablet 50 mcg PO DAILY Discontinued lorazepam 1 mg tablet 1 tab PO BID clopidogrel 75 mg Tablet 75 mg PO QDAY aspirin 81 mg Tablet,Delayed Release (Dr/Ec) 81 mg PO QDAY Orders to Discharge Patient Discharge Orders: Discharge (Routine); Ordered 05/01/22 Ordered By: Fabiola Boyer Follow ups/Referrals Follow ups/Referrals: FRANCISCO DELUCA [Primary Care Provider] - 3 days Instructions Stand Alone Forms: Excuse From Work or School
[2022-05-01] MEDS: CELEXA PO SCH (10:19)
[2022-05-01] MEDS: RANEXA PO SCH (10:20)
[2022-05-01] MEDS: COREG TAB 25 MG PO SCH (10:20)
[2022-05-01] MEDS: ISOSORBIDE DINITRATE PO SCH (10:20)
[2022-05-01] MEDS: CARDIZEM CD 240 MG 24-HR PO SCH (10:21)
[2022-05-01] MEDS: PROTONIX INJ 40 MG VIAL IVP SCH (10:21)
[2022-05-01 15:24] VITALS: BP 118/58
== END 2022-05-01 12:55 | disposition home or self-care (01) ==
LOC: MED/SURG 08:56 → ER 08:56 → MED/SURG 12:30
PROVIDERS: ADMIT Internal Medicine; ATTEND Internal Medicine
DX: I10 Essential (primary) hypertension; D64.89 Other specified anemias; Z95.1 Presence of aortocoronary bypass graft; Z66 Do not resuscitate; J44.9 Chronic obstructive pulmonary disease, unspecified; E11.65 Type 2 diabetes mellitus with hyperglycemia; E78.2 Mixed hyperlipidemia; K92.2 Gastrointestinal hemorrhage, unspecified; N17.8 Other acute kidney failure; Z98.890 Other specified postprocedural states; I25.10 Atherosclerotic heart disease of native coronary artery without angina pectoris